=== PATIENT | female | born 1970 | race Caucasian/White ===

== ENCOUNTER 2017-05-22 10:29 | Emergency (ER) | payer OTHER ==
[~2017-05-22] VITALS: Ht 172.7 cm; Wt 86.2 kg
--- NOTE | 2017-05-22 11:07 | ED PSYCHIATRIC COMPLAINT ---
History of Present Illness General Chief Complaint: ETOH/Drug Related Complaint Stated Complaint: PT WANTS DETOX FOR [facility] Source: patient Exam Limitations: no limitations Vital Signs & Intake/Output Vital Signs & Intake/Output Vital Signs Date Time Temp Pulse Resp B/P B/P Pulse O2 O2 Flow FiO2 Mean Ox Delivery Rate 05/22 2041 98.9 94 18 145/78 98 Room Air 05/22 1835 98.2 85 20 130/73 05/22 1812 95 18 130/73 95 Room Air 05/22 1645 98.0 96 18 125/82 99 Room Air 05/22 1644 98.0 96 18 125/82 05/22 1414 99 Room Air 05/22 1411 98.6 124 20 143/95 05/22 1035 98.6 124 18 143/95 99 Room Air ED Intake and Output 05/23 0000 05/22 1200 Intake Total 120 Output Total Balance 120 Intake, Oral 120 Patient 190 lb Weight Weight Reported by Patient Measurement Method Allergies Coded Allergies: No Known Allergies (05/22/17) Reconcile Medications Levothyroxine Sodium (Synthroid) 100 MCG TABLET 1 TAB PO DAILY THYROID ( Reported) Liothyronine Sodium 10 MCG/ML VIAL 10.8 MCG PO Q12H THYROID (Reported) Niacinamide (Niacin) 500 MG TABLET 1 TAB PO TID SUPPLEMENT (Reported) Triage Note: PT TO ED FOR ETOH DETOX AND CLEARANCE FOR [employer], ENDORSES DRINKING "1-1.75 LITERS OF VODKA DAILY", UNABLE TO IDENTIFY LAST TIME SHE DETOXED, UNKNOWN HX OF WITHDRAWAL SEIZURES. 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 Triage Nurses Notes Reviewed? yes Onset: Gradual Duration: getting worse Severity: severe Severity Numbers: 8 HPI: Patient is a 46-year-old female with a past medical history of hypothyroidism and alcohol dependency and who presents emergency room with concerns of alcohol dependency in which all where she was sent from [facility] detox facility for medical clearance Patient states that she has a extensive long history of ALCOHOL dependency however the last year she has been complaining of worsening drinking habits due to her dog recently dying AND stressful job Patient does present with son and sister Patient did drink prior to arrival Denies any current illness Patient denies any auditory or visual hallucinations denies any suicide or homicide ideation. Patient can tolerate by mouth patient does smoke tobacco denies any illicit drugs (Lary LEE,Soren) Past History Travel History Traveled to [place] past 21 day No Medical History Any Pertinent Medical History? see below for history Neurological: NONE EENT: NONE Cardiovascular: NONE Respiratory: NONE Gastrointestinal: NONE Hepatic: NONE Renal: NONE Musculoskeletal: NONE Psychiatric: alcohol dependence Endocrine: HYPOGLYCEMIC HYPOTHYROID Blood Disorders: NONE Cancer(s): NONE Surgical History Surgical History: non-contributory Psychosocial History What is your primary language Bulgarian Tobacco Use: Current Daily Use Daily Tobacco Use Amount/Type: => 5 Cigarettes daily ETOH Use: alcoholic Illicit Drug Use: denies illicit drug use Family History Hx Contributory? No (Soren Martin) Review of Systems Review of Systems Constitutional: Reports: no symptoms. EENTM: Reports: no symptoms. Respiratory: Reports: no symptoms. Cardiovascular: Reports: no symptoms. GI: Reports: no symptoms. Genitourinary: Reports: no symptoms. Musculoskeletal: Reports: no symptoms. Skin: Reports: no symptoms. Neurological/Psychological: Reports: see HPI. Hematologic/Endocrine: Reports: no symptoms. Immunologic/Allergic: Reports: no symptoms. All Other Systems: Reviewed and Negative (Soren Martin) Physical Exam Physical Exam General Appearance: no apparent distress, intoxicated Head: atraumatic Eyes: Bilateral: normal appearance. Ears, Nose, Throat: normal pharynx, normal ENT inspection Neck: normal inspection Respiratory: normal breath sounds, chest non-tender Cardiovascular: regular rate/rhythm Gastrointestinal: normal bowel sounds, soft, non-tender Neurological/Psychiatric: no motor/sensory deficits, awake, depressed affect Appearance/Memory/Insight: denies illness, disheveled Behavoir/Eye Contact/Speech: cooperative, normal speech, good eye contact Thoughts/Hallucinations: normal thought pattern, no apparent hallucination SAD PERSONS Done? patient not suicidal (Soren Martin) Progress Differential Diagnosis: drug intoxication, drug overdose, drug withdrawal, electrolyte abnormality, encephalitis, hypoglycemia, hypothyroidism, meningitis Plan of Care: Orders Procedure Date/time Status Regular Diet 05/23 B Active CIWA 05/22 1107 Active URINE DRUG SCREEN FOR ER ONLY 05/22 1054 Complete LIPASE 05/22 1054 Complete ETHANOL 05/22 1054 Complete COMPREHENSIVE METABOLIC PANEL 05/22 1054 Complete CBC WITHOUT DIFFERENTIAL 05/22 1054 Complete Laboratory Tests 05/22/17 1150: Anion Gap 13, Estimated GFR > 60, BUN/Creatinine Ratio 12.9, Glucose 137 H, Calcium 9.2, Total Bilirubin 0.2, AST 93 H, ALT 119 H, Alkaline Phosphatase 111, Total Protein 5.9 L, Albumin 3.8, Globulin 2.1, Albumin/Globulin Ratio 1.8 , Lipase 68, CBC w Diff NO MAN DIFF REQ, RBC 4.16 L, MCV 103.2 H, MCH 33.5 H, MCHC 32.4 L, RDW 15.4 H, MPV 9.0, Gran % 72.2, Lymphocytes % 17.6 L, Monocytes % 9.2, Eosinophils % 0.7, Basophils % 0.3, Absolute Granulocytes 10.1 H, Absolute Lymphocytes 2.5, Absolute Monocytes 1.3 H, Absolute Eosinophils 0.1 , Absolute Basophils 0, Serum Alcohol 259.0 05/22/17 1120: Urine Opiates Screen < 100.00, Methadone Screen < 40, Barbiturate Screen < 60, Ur Phencyclidine Scrn < 6.00, Amphetamines Screen 108, U Benzodiazepines Scrn < 85, Urine Cocaine Screen < 50, Urine Cannabis Screen < 5.00 INTIAL CIWA 2 Patient was reevaluated on multiple occasions by nursing staff in which patient currently AT 1755 is clinically sober and does not meet criteria to be admitted to [facility] for concerns of alcohol withdrawal, DR FARRELL called [facility] for transportation services for patient DR. FARRELL discusses that at this time of night there are no admissions for [facility] patient Patient requested to be safely discharged in which I had a long extensive conversation with patient to not drink any alcohol and first thing tomorrow to GO TO [facility], patient will receive a ride home from son discussed plan with DR. FARRELL (Soren Martin) Departure Departure Disposition: HOME OR SELF CARE Condition: Stable Clinical Impression Primary Impression: Alcohol dependence Referrals: Patient Has No Primary Care Dr (PCP/Family) Additional Instructions: Please discontinue the use of alcohol Please present to [facility] facility for detox treatment of alcohol at 9 AM tomorrow for admission If symptoms worsen return to emergency room Departure Forms: Customer Survey General Discharge Information (Soren Martin) PA/DOLL EYE SETTER Co-Sign Statement Statement: ED Attending supervision documentation- [X] I saw and evaluated the patient. I have also reviewed all the pertinent lab results and diagnostic results. I agree with the findings and the plan of care as documented in the PA's/DOLL EYE SETTER's documentation. [] I have reviewed the ED Record and agree with the PA's/DOLL EYE SETTER's documentation. [] Additions or exceptions (if any) to the PAs/DOLL EYE SETTER's note and plan are summarized below: [] (Og ANAND,Aroldo Mccray) Critical Care Note Critical Care Note Critical Care Time: 30-74 min (Lary LEE,Soren)
[2017-05-22 12:09] LABS: ABSOLUTE BASOPHIL COUNT 0 /CUMM (0.0-0.2); ABSOLUTE EOSINOPHIL COUNT 0.1 /CUMM (0.0-0.7); ABSOLUTE GRANULOCYTE CT 10.1 /CUMM (1.4-6.5); ABSOLUTE LYMPH COUNT 2.5 /CUMM (1.2-3.4); ABSOLUTE MONOCYTE COUNT 1.3 /CUMM (0.10-0.60); BASOPHIL % 0.3 % (0.0-2.0); EOSINOPHIL % 0.7 % (0-5); GRANULOCYTE % 72.2 % (42.2-75.2); MEAN CORPUSCULAR HGB 33.5 PG (27.0-31.0); MEAN CORPUSCULAR HGB CONC 32.4 G/DL (33.0-37.0); MEAN CORPUSCULAR VOLUME 103.2 FL (81.0-99.0); PLATELET COUNT 288 /CUMM (130-400); RBC DISTRIBUTION WIDTH 15.4 % (11.5-14.5); RED BLOOD CELL CT 4.16 /CUMM (4.20-5.40); WHITE BLOOD CELL COUNT 13.9 /CUMM (4.8-10.8)
[2017-05-22] MEDS ORDERED: SYNTHROID100 MCG PO (13:37)
[2017-05-22] MEDS ORDERED: [UNRECOGNIZED DRUG - OTHER] PO (13:38)
[2017-05-22] MEDS ORDERED: NIACIN500 M6 PO (13:39)
[2017-05-22 20:42] VITALS: BP 145/78
== END 2017-05-22 20:42 ==
LOC: ERH 10:29
PROVIDERS: Physician Assistant Medical
DX: F10.20 Alcohol dependence, uncomplicated (principal)
CPT/HCPCS: 80307; G0480